=== PATIENT | female | born 1950 | race Caucasian/White ===

== ENCOUNTER → 2022-01-23 14:13 | Outpatient (BNVA) | payer MEDICARE, OTHER, SELFPAY | PROVIDERS: PCP Family Medicine; Visit Provider Family Medicine | DX: R00.2 Palpitations (principal); Z13.1 Encounter for screening for diabetes mellitus; E03.9 Hypothyroidism, unspecified; Z13.6 Encounter for screening for cardiovascular disorders; G62.9 Polyneuropathy, unspecified; M85.80 Other specified disorders of bone density and structure, unspecified site; Z78.0 Asymptomatic menopausal state; L98.9 Disorder of the skin and subcutaneous tissue, unspecified; Z00.00 Encounter for general adult medical examination without abnormal findings | CPT/HCPCS: 80053; 80061; 83735; 84439; 84443; 85025 ==

== ENCOUNTER → 2022-01-31 10:47 | Outpatient (BNVA) | payer MEDICARE, OTHER, SELFPAY | PROVIDERS: PCP Family Medicine; Visit Provider Internal Medicine Cardiovascular Disease | DX: R00.2 Palpitations (principal) | CPT/HCPCS: 93246 ==

== ENCOUNTER 2022-02-07 14:19 | Outpatient (CLI) | payer MEDICARE, OTHER, SELFPAY ==
--- NOTE | 2022-02-07 14:23 | XR_ITS ---
WS: [id number] DEXA (DUAL ENERGY X-RAY ABSORPTIOMETRY) Bone mineral density was performed using a [employer] machine. HISTORY: screen osteoporosis COMPARISON: None available. Lumbar spine BMD (L1-L4): 1.107 g/cm2 T score: -0.6 Z score: 0.8 Total hip BMD: Left: 0.776 (g/cm2). T score: -1.8 (no units) Z score: -0.4 (no units) 10 year probability of a major osteoporotic fracture is 31.8%. Lumbar scoliosis. Convexity to the LEFT. XR/XR DEXA axial skeleton* [id number] IMPRESSION: OSTEOPENIA based upon the WHO classification for females.
== END 2022-02-07 14:20 | disposition home or self-care (01) ==
LOC: RAD 14:19
PROVIDERS: PCP Family Medicine; Visit Provider Family Medicine
DX: E03.9 Hypothyroidism, unspecified (principal); Z78.0 Asymptomatic menopausal state; Z13.820 Encounter for screening for osteoporosis; M85.88 Other specified disorders of bone density and structure, other site
CPT/HCPCS: 77080; 82306; 82607

== ENCOUNTER 2022-03-03 10:51 | Outpatient (CLI) | payer MEDICARE, OTHER, SELFPAY ==
--- NOTE | 2022-03-03 11:04 | XR_ITS ---
WS: [email or web address] Chest 2 views, 03/03/2022 Clinical Data: reports lung nodule being followed on xr Comparison: None. Findings: No nodules, masses or effusions are seen. The heart is normal. The pulmonary vascularity is not increased. No pneumonia or pneumothorax is seen. The aortic arch and descending thoracic aorta s how mild tortuosity. There is a minimal dextroscoliosis of the thoracic spine. XR/XR chest 2V* [id number] Impression: Atherosclerosis.
== END 2022-03-03 10:52 | disposition home or self-care (01) ==
LOC: RAD 10:54
PROVIDERS: PCP Family Medicine; Visit Provider Family Medicine
DX: R91.1 Solitary pulmonary nodule (principal); I70.90 Unspecified atherosclerosis
CPT/HCPCS: 71046

== ENCOUNTER 2022-04-03 11:10 | Outpatient (CLI) | payer MEDICARE, OTHER, SELFPAY ==
--- NOTE | 2022-04-03 11:28 | XR_ITS ---
WS: [email or web address] XR KUB [id number] REASON FOR EXAM: constipation, abd pain FINDINGS: Unusual lucency along the lateral margin of the lower right lobe of the liver. Remainder of the bowel gas pattern demonstrates a moderate amount of stool retention within the colon predominating in the distal transverse and left colons without significant colon distention. No smal l bowel distention. No soft tissue mass. No significant abdominal or pelvic calcification. Moderately severe degenerative spondylosis in the lumbar spine with rotatory scoliosis convex left. P revious right hip nailing. XR/XR KUB [id number] IMPRESSION: Unusual lucency in the right lateral upper abdomen as above. Abnormality is exc essively lucent for fat. Likely this does not represent free air. Possibly a co mpressed segment of perihepatic colon interposition. Possibly air trapped in th e skinfold, unusual orientation. As clinically warranted recommend flat and upr ight abdomen to exclude significant abnormality.
== END 2022-04-03 11:11 | disposition home or self-care (01) ==
PROVIDERS: PCP Family Medicine; Visit Provider Family Medicine
DX: K59.00 Constipation, unspecified (principal); R10.9 Unspecified abdominal pain
CPT/HCPCS: 74018

== ENCOUNTER 2022-04-06 08:53 | Outpatient (CLI) | payer MEDICARE, OTHER, SELFPAY ==
--- NOTE | 2022-04-06 09:10 | XR_ITS ---
WS: [email or web address] XR abdomen min 2V [id number] REASON FOR EXAM: abnormal kub earlier today FINDINGS: The previously described abnormality is identified on the current study and unchanged and therefore i s not related to bowel. Presumably this is a large amount of properitoneal fat which appears more bi ent due to its interface with the liver. There is also a large amount of properitoneal fat in the lat eral aspect of the left abdomen to help confirm this. XR/XR abdomen min 2V [id number] IMPRESSION: Abnormality is determined to represent large amount of properitoneal fat which extends along the lateral right lobe of the liver. No significant abnormality is present in the abdomen.
== END 2022-04-06 08:54 | disposition home or self-care (01) ==
LOC: RAD 08:57
PROVIDERS: PCP Family Medicine; Visit Provider Family Medicine
DX: R93.5 Abnormal findings on diagnostic imaging of other abdominal regions, including retroperitoneum (principal)
CPT/HCPCS: 74019

== ENCOUNTER 2022-07-27 12:04 | Outpatient (CLI) | payer MEDICARE, OTHER, SELFPAY ==
--- NOTE | 2022-07-27 12:14 | XR_ITS ---
WS: [email or web address] Exam: XR chest 2V* [id number] Date/Time of Exam: 07/27/2022 12:16 PM Reason For Exam: nodule seen on previous xray Comparison 03/03/2022. The lungs are hyperinflated and clear. No suspicious pulmonary mass or nodule. Several calcified gran ulomas noted. Normal cardiomediastinal silhouette. Dextroscoliosis at the thoracolumbar junction. Rem aining bony elements are intact. XR/XR chest 2V* [id number] IMPRESSION: 1. Pulmonary hyperinflation. No acute process noted. 2. Calcified densities noted suggesting healed granulomatous. No suspicious pul monary mass or nodule.
[2022-07-27 14:24] LABS: 25 Hydroxy Vitamin D 27 ng/mL (30-100); Vitamin B12 541 pg/mL (232-1245)
== END 2022-07-27 12:05 | disposition home or self-care (01) ==
PROVIDERS: PCP Family Medicine; Visit Provider Family Medicine
DX: R91.1 Solitary pulmonary nodule (principal); R53.83 Other fatigue; E55.9 Vitamin D deficiency, unspecified
CPT/HCPCS: 36415; 71046; 82306; 82607; 84255

== ENCOUNTER 2022-08-11 08:57 | Outpatient (CLI) | payer MEDICARE, OTHER, SELFPAY ==
--- NOTE | 2022-08-11 | MM_ITS ---
WS: [email or web address] SCREENING DIGITAL TOMOSYNTHESIS MAMMOGRAM WITH CAD HISTORY: SCREEN COMPARISON: None available. Bilateral CC and MLO with tomosynthesis views submitted. Synthetic mammography reviewed. Computer aid ed detection analyzed. Breast composition: There are scattered areas of fibroglandular density. No suspicious masses, microc alcifications or architectural distortion. Benign calcification central LEFT breast. MM/[place] [id number] IMPRESSION: BI-RADS: 2-Benign FOLLOW UP: 1 Year Follow-up
== END 2022-08-11 08:58 | disposition home or self-care (01) ==
LOC: RAD 08:58
PROVIDERS: PCP Family Medicine; Visit Provider Family Medicine
DX: Z12.31 Encounter for screening mammogram for malignant neoplasm of breast (principal)
CPT/HCPCS: 77063; 77067

== ENCOUNTER → 2022-08-22 09:51 | Outpatient (BNVA) | payer MEDICARE, OTHER, SELFPAY | PROVIDERS: PCP Family Medicine; Visit Provider Surgery | DX: Z86.010 Personal history of colon polyps (principal); K92.1 Melena | CPT/HCPCS: 99203 ==

== ENCOUNTER → 2022-09-14 12:25 | Outpatient (BNVA) | payer MEDICARE, OTHER, SELFPAY | PROVIDERS: PCP Family Medicine; Referring Provider Family Medicine; Visit Provider Specialist | DX: G62.89 Other specified polyneuropathies (principal); G43.711 Chronic migraine without aura, intractable, with status migrainosus; G25.0 Essential tremor | CPT/HCPCS: 99204 ==

== ENCOUNTER → 2022-10-06 10:06 | Outpatient (BNVA) | payer MEDICARE, OTHER, SELFPAY | PROVIDERS: PCP Family Medicine; Visit Provider Dermatology | DX: D23.5 Other benign neoplasm of skin of trunk (principal); D23.62 Other benign neoplasm of skin of left upper limb, including shoulder; L57.8 Other skin changes due to chronic exposure to nonionizing radiation; Z08 Encounter for follow-up examination after completed treatment for malignant neoplasm; Z85.828 Personal history of other malignant neoplasm of skin; L56.8 Other specified acute skin changes due to ultraviolet radiation; L57.0 Actinic keratosis | CPT/HCPCS: 17000; 17003; 99213 ==